=== PATIENT | female | born 1990 | race Caucasian/White ===

== ENCOUNTER 2021-08-18 17:00 | Outpatient (CLI) | payer BC ==
[2021-08-18] MEDS ORDERED: SODIUM CHLORIDE 0.9% 500 ML 500 ML IV ONE (17:56)
[2021-08-18] MEDS ORDERED: ONDANSETRON 4 MG/2 ML VIAL IM STA (17:56)
[2021-08-18 18:19] LABS: Appearance,Urine Clear (Clear); Bacteria,Urine Occasional /hpf; Bilirubin,Urine Negative (Negative); Blood,Urine Moderate (Negative); Color,Urine Yellow; Glucose,Urine (UA) Negative (Negative); Ketones,Urine 1+ (Negative); Leukocyte Esterase,Urine Small (Negative); Mucus,Urine Many /hpf; Nitrite,Urine Negative (Negative); Protein,Urine Trace (Negative); RBC,Urine 21 /hpf (0-5); Specific Gravity,Urine 1.025 (1.001-1.035); Squamous Epithelial Cell,Urine 4 /hpf (0-4); WBC,Urine 5 /hpf (0-5)
[2021-08-18 18:36] LABS: Basophils % (A) 0 %; Eosinophils # (A) 0.1 k/uL (0-0.7); Eosinophils % (A) 1 %; HCT 30.7 % (34.0-46.0); HGB 10.2 gm/dL (11.4-16.0); Lymphocytes # (A) 0.4 k/uL (1.0-4.8); Lymphocytes % (A) 5 %; MCH 32.8 pg (25.0-35.0); MCHC 33.3 g/dL (31.0-37.0); MCV 98.7 fL (80.0-100.0); Mean Platelet Volume 8.9; Monocytes # (A) 0.2 k/uL (0-1.0); Monocytes % (A) 3 %; Neutrophils # (A) 6.4 k/uL (1.3-7.7); Neutrophils % (A) 90 %; Platelet Count 182 k/uL (150-450); RBC 3.11 m/uL (3.80-5.40); RDW 13.9 % (11.5-15.5); WBC 7.1 k/uL (3.8-10.6)
[2021-08-18 19:41] VITALS: BP 119/70; PULSE 121; RESP 16; TEMP 98.3
--- NOTE | 2021-08-29 07:01 | P.MSEPDOC ---
Presenting Problems - Arrival Data Date of Arrival on Unit: 08/18/21 Time of Arrival on Unit: 17:14 Mode of Transport: Ambulatory - Complaint OB-Reason for Admission/Chief Complaint: Other Comment: pt arrived c/o throwing up all day and states she had a litle diarrhea this morning. pt also c/o some cramping. pt states she had covid in May Medical History - Information : 2 Para: 1 Term: 0 : 0 Abortions: Spontaneous or Elective: 0 Number of Living Children: 1 - Gestational Age Gestational Age by MAXI (wks/days): 37 Weeks and 1 Days Review of Systems - Review of Systems Constitutional: No problems Breast: No problems ENT: No problems Cardiovascular: No problems Respiratory: No problems Gastrointestinal: No problems Genitourinary: No problems Musculoskeletal: No problems Neurological: No problems Skin: No problems Vital Signs - Temperature Temperature: 98.3 F Temperature Source: Oral - Pulse Right Brachial Pulse Rate: 121 Pulse Assessment Method: Automatic Cuff - Respirations Respiratory Rate: 16 Oxygen Delivery Method: Room Air O2 Sat by Pulse Oximetry: 98 - Blood Pressure Right Arm Blood Pressure: 119/70 Blood Pressure Mean: 86 Blood Pressure Source: Automatic Cuff Medical Screen Scoring - Cervical Exam Dilation (cm): 1 Effacement (%): 50 Station: -2 Membranes: Intact - Uterine Contractions Intensity: Mild Resting: Soft to palpation - Assessment - Baby A Baseline FHR: 150 Heart Rate - NICHD Category: Category I (Normal) NST: Reactive Physician Notification - Physician Notified Physician Notified Date: 08/18/21 Physician Notified Time: 17:35 Physician: Dr Clarke New Order Received: Yes - Notification Comment Comment: start iv of Normal Saline, given zofran 4mg ivp, and obtain clean catch u/a and cbc and send to lab. and call her back with results. pt hydrated with iv fluid and given zofran. and labs back. dr jimenez called with results and orders receive to d/c pt and have her keep her scheduled appointment with dtr wilmer this week Maternal Triage Index - Non-Urgent/Priority 4 Non-Urgent Priority 4: Yes Criteria Met for Priority 4: p t 37 1/7 weeks c/o nausea and throwing up since this AM and had some diarrhea this morning. pt also c/o mild abd cramping Disposition - Disposition OB Disposition: Discharge to home Discharge Date: 08/18/21 Discharge Time: 19:25 I agree with the RN Medical Screening Exam: Yes Case reviewed; plan agreed upon as documented in EMR&OBIX.: Yes Diagnosis: nausea andvomitting in
== END 2021-08-18 19:20 | disposition home or self-care (01) ==
LOC: FBPOP 17:00
PROVIDERS: ATTEND Obstetrics & Gynecology
DX: O21.2 Late vomiting of pregnancy (principal); Z3A.37 37 weeks gestation of pregnancy
CPT/HCPCS: 59025; 99214; 96361; 96374; 85025; 81001; J2405; 96360; 96366

== ENCOUNTER 2021-09-01 06:15 | Inpatient (IN) | payer BC ==
[2021-09-01] MEDS ORDERED: TERBUTALINE 1 MG/ML VIAL SQ PRN (07:08)
[2021-09-01] MEDS ORDERED: LIDOCAINE 1% (PF) 10 MG/ML (30 ML SDV) SQ PRN (07:08)
[2021-09-01] MEDS ORDERED: CARBOPROST TROMETHAMINE 250 MCG/ML 1 ML AMP IM PRN (07:08)
[2021-09-01] MEDS ORDERED: METHYLERGONOVINE 0.2 MG/ML 1 ML AMP IM PRN (07:08)
[2021-09-01] MEDS ORDERED: OXYTOCIN 10 UNIT/ML 1 ML VIAL IM PRN (07:08)
[2021-09-01] MEDS ORDERED: OXYTOCIN 30 UNITS/500 ML NS 30 UNIT in SALINE 1 500ML.BAG IV SCH ×2 (07:15→14:15)
[2021-09-01] MEDS: LACTATED RINGERS 1,000 ML IV SCH ×2 (07:15→21:28)
[2021-09-01 07:25] LABS: Basophils % (A) 1 %; Eosinophils # (A) 0.2 k/uL (0-0.7); Eosinophils % (A) 2 %; HCT 32.6 % (34.0-46.0); HGB 11.1 gm/dL (11.4-16.0); Lymphocytes % (A) 13 %; MCH 32.6 pg (25.0-35.0); MCV 96.1 fL (80.0-100.0); Mean Platelet Volume 7.7; Monocytes # (A) 0.5 k/uL (0-1.0); Monocytes % (A) 6 %; Neutrophils # (A) 5.9 k/uL (1.3-7.7); Neutrophils % (A) 77 %; Platelet Count 245 k/uL (150-450); RBC 3.39 m/uL (3.80-5.40); RDW 13.6 % (11.5-15.5); WBC 7.6 k/uL (3.8-10.6)
[2021-09-01] MEDS ORDERED: BUTORPHANOL 1 MG/ML 1 ML VIAL IV PRN (09:03)
--- NOTE | 2021-09-01 09:07 | P.HPOB ---
History of Present Illness H&P Date: 09/01/21 Chief Complaint: 39 and one sevenths weeks, elective induction The patient is a 30-year-old 2 para 1001 admitted at 39 and one sevenths weeks as established by last menstrual period and confirmed by 8 week ultrasound. She is admitted for elective induction of labor with all signs reassuring. Her has been uncomplicated. She is Rh- and received RhoGAM at 28 weeks. Group B strep status is negative. On labor and delivery, all signs reassuring with a category 1 heart rate tracing. Obstetrical history: 2 para 1001 with 1 previous normal vaginal delivery at term. Current statistics are listed in history present illness. EDC of 09/07/2021 was established by last menstrual period and confirmed by 8 week ultrasound. Laboratory workup demonstrates a blood type of A- with a negative antibody screen. Rubella status is immune. The remainder of the laboratory workup was within normal limits. One hour Glucola was normal and group B strep status is negative. Gynecologic history: Unremarkable with no history of any infections to include STDs. Review of Systems Review of systems is confined to history of present illness. Past Medical History Past Medical History: No Reported History History of Any Multi-Drug Resistant Organisms: None Reported Past Surgical History: No Surgical Hx Reported Past Anesthesia/Blood Transfusion Reactions: No Reported Reaction Past Psychological History: No Psychological Hx Reported Smoking Status: Never smoker Past Alcohol Use History: None Reported Past Drug Use History: None Reported - Past Family History Mother Family Medical History: No Reported History Medications and Allergies Home Medications Medication Instructions Recorded Confirmed Type Omeprazole [PriLOSEC] 1 capsule PO DAILY 09/01/21 09/01/21 History Pnv No.95/Ferrous Fum/Folic AC 1 tab PO DAILY 09/01/21 09/01/21 History [ Multivitamin Tablet] Allergies Allergy/AdvReac Type Severity Reaction Status Date / Time No Known Allergies Allergy Verified 09/01/21 07:04 Exam Vital Signs Temp Pulse Resp BP 09/01/21 07:54 97.2 F L 103 H 16 114/66 Intake and Output 08/31/21 09/01/21 09/01/21 22:59 06:59 14:59 Other: Weight 85.729 kg In general, this is a well-developed, well-nourished white female in no acute distress. Her heart has a regular rhythm and rate without murmur. Her lungs are clear to auscultation bilaterally in all freedman. Her abdomen is gravid, nondistended, has normal active bowel sounds, is soft, nontender, and without any palpable masses aside from the uterine fundus. Her extremities are without any cyanosis, clubbing, or edema and are nontender to palpation bilaterally. Digital cervical examination demonstrates her cervix to be 2+ centimeters dilated, approximately 50% effaced, with the vertex in presentation at -2 station. Artificial rupture of membranes is carried out demonstrating clear fluid. Results Result Diagrams: 09/01/21 07:00 Abnormal Lab Results - Last 24 Hours (Table) 09/01/21 Range/Units 07:00 RBC 3.39 L (3.80-5.40) m/uL Hgb 11.1 L (11.4-16.0) gm/dL Hct 32.6 L (34.0-46.0) % Assessment and Plan (1) Term Current Visit: Yes Status: Acute Code(s): Z34.90 - ENCNTR FOR SUPRVSN OF NORMAL , UNSP, UNSP TRIMESTER SNOMED Code(s): 47039437 Plan: The patient is admitted for elective induction of labor secondary to significant maternal discomfort with ongoing back pain. Her is otherwise been uncomplicated. On labor and delivery, all signs reassuring. Pitocin augmentation has been started and artificial rupture of membranes carried out. She will have close maternal and surveillance and expectant management will be practiced. She is a good candidate for either IV or epidural analgesia, whichever she may choose.
[2021-09-01] MEDS ORDERED: SODIUM CHLORIDE 0.9% 100 ML BAG ONE (11:16)
[2021-09-01] MEDS ORDERED: ROPIVACAINE 5MG/ML 20ML VIAL ONE (11:16)
[2021-09-01] MEDS ORDERED: fentaNYL (PF) 50 MCG/ML 5 ML AMP ONE (11:16)
[2021-09-01] MEDS ORDERED: BENZOCAINE/MENTHOL SPRAY 1 GM/SPRAY AEROSOL TOPICAL PRN (14:02)
[2021-09-01] MEDS ORDERED: LANOLIN CREAM 5 GM TUBE TOPICAL PRN (14:02)
[2021-09-01] MEDS ORDERED: diphenhydrAMINE 25 MG CAP PO PRN (14:02)
[2021-09-01] MEDS ORDERED: HYDROcodone/APAP 5-325MG 1 EACH TAB PO PRN (14:02)
[2021-09-01] MEDS ORDERED: diphenhydrAMINE 50 MG/ML 1 ML VIAL IVP PRN ×2 (14:02)
[2021-09-01] MEDS ORDERED: HYDROcodone/APAP 7.5-325MG 1 EACH TAB PO PRN (14:02)
[2021-09-01] MEDS ORDERED: SIMETHICONE 80 MG CHEWABLE PO PRN (14:02)
[2021-09-01] MEDS ORDERED: HYDROCORTISONE 2.5% RECTAL CREAM 30 GM TUBE RECTAL PRN (14:02)
[2021-09-01] MEDS ORDERED: ZOLPIDEM 5 MG TAB PO PRN (14:02)
[2021-09-01] MEDS ORDERED: ACETAMINOPHEN TAB 325 MG TAB PO PRN (14:02)
[2021-09-01] MEDS ORDERED: diphenhydrAMINE 50 MG CAP PO PRN (14:02)
--- NOTE | 2021-09-01 14:05 | P.PROBDLV ---
Vaginal Delivery Note - . Vaginal Delivery Note: The patient is a 30-year-old 2 para 1001 admitted at 39 and one sevenths weeks by good dating parameters perches admitted for elective induction of labor with a favorable cervix and all signs reassuring, category 1 heart rate tracing. Her was entirely uncomplicated though she is Rh- and received RhoGAM at 28 weeks. Group E strep status is negative. On labor and delivery, she had Pitocin augmentation started and underwent artificial rupture of membranes for clear fluid. She made fairly rapid progress to the active phase of labor and had an epidural catheter placed for analgesia. She then progressed quickly through the active phase to complete and pushed over the course of approximately 4 contractions to a normal spontaneous vaginal delivery of a viable 8 lbs. 1 oz. baby boy with Apgars of 9 at 1 minute and 9 at 5 minutes delivered in the right occiput anterior position. The placenta was delivered spontaneously, intact, and grossly normal although it was very large with a grossly normal, centrally inserted three-vessel cord. There are no lacerations of the perineum, vagina, or cervix. Estimated blood loss for the case is approximately 200 mL. There were no complications. All sponge, instrument, and needle counts were correct. Both mother and infant are resting comfortably in recovery.
[2021-09-01] MEDS: IBUPROFEN 600 MG TAB PO PRN ×2 (15:39→22:16)
[2021-09-01] MEDS ORDERED: Rhogam IMMUNE GLOBULIN 1,500 UNIT/1 ML IM ONE (18:54)
[2021-09-01] MEDS: SENNOSIDES-DOCUSATE SODIUM 1 EACH TAB PO SCH (21:30)
[2021-09-02 07:05] LABS: HGB 10.7 gm/dL (11.4-16.0); MCH 32.5 pg (25.0-35.0); MCHC 33.4 g/dL (31.0-37.0); MCV 97.1 fL (80.0-100.0); Mean Platelet Volume 9.2; Neutrophils % (A) 77 %; Platelet Count 199 k/uL (150-450); RDW 13.8 % (11.5-15.5); WBC 9.1 k/uL (3.8-10.6)
[2021-09-02 07:06] LABS: Basophils % (A) 0 %; Eosinophils # (A) 0.2 k/uL (0-0.7); Eosinophils % (A) 2 %; Lymphocytes # (A) 1.3 k/uL (1.0-4.8); Lymphocytes % (A) 14 %; Monocytes # (A) 0.5 k/uL (0-1.0); Monocytes % (A) 6 %
[2021-09-02 08:16] VITALS: BP 106/71; PULSE 100; RESP 14; TEMP 97.8
--- NOTE | 2021-09-02 08:57 | P.DS ---
Providers Date of admission: 09/01/21 06:41 Expected date of discharge: 09/02/21 Attending physician: Hermes Olmedo Primary care physician: Stated None - Discharge Diagnosis(es) (1) Term Current Visit: Yes Status: Acute (2) Normal spontaneous vaginal delivery Current Visit: Yes Status: Acute Hospital Course: Is a 30-year-old 2 para 1001 admitted at 39 and one sevenths weeks by good dating parameters. She is admitted for elective induction of labor all signs reassuring. Her was uncomplicated though she is Rh- and received RhoGAM at 28 weeks. Group B strep status is negative. On labor and delivery, Pitocin augmentation was started and she underwent artificial rupture of membranes for clear fluid. She had an epidural catheter placed around the onset of the active phase of labor and made rapid progress through the day to complete. She then pushed quickly to a normal spontaneous vaginal delivery of a viable 8 lbs. 1 oz. baby boy with Apgars of 9 at 1 minute and 9 at 5 minutes. Her care was unremarkable as vital signs were stable and she was afebrile throughout. She was deemed stable for discharge on day 1 was discharged home to follow-up in the office in 6 weeks' time routinely. Discharge instructions included calling for any significantly increased bleeding or foul-smelling lochia, significantly increased fever abdominal pain, perineal complaints, breast complaints, or anything else that concerned her. She was additionally instructed to have nothing in the vagina for at least 6 weeks time. She understood her instructions and agrees follow up as noted above. Discharge medications included continued vitamins as she has opted to breast- feed. She was otherwise to use [id number] analgesic pain medications as needed. Maternal blood type is A- and cord blood was sent for evaluation for the necessity of RhoGAM prior to discharge. Rubella status is immune. Procedures: #1. Pitocin augmentation over 2. Artificial rupture of membranes #3. Epidural analgesia #4. Normal spontaneous vaginal delivery Patient Condition at Discharge: Stable Plan - Discharge Summary New Discharge Prescriptions: No Action Pnv No.95/Ferrous Fum/Folic AC [ Multivitamin Tablet] 1 tab PO DAILY Omeprazole [PriLOSEC] 1 capsule PO DAILY Discharge Medication List Omeprazole [PriLOSEC] 1 capsule PO DAILY 09/01/21 [History] Pnv No.95/Ferrous Fum/Folic AC [ Multivitamin Tablet] 1 tab PO DAILY 09/01/21 [History] Follow up Appointment(s)/Referral(s): Hermes Olmedo MD [STAFF PHYSICIAN] - 6 Weeks Discharge Disposition: HOME SELF-CARE
[2021-09-02] MEDS: SENNOSIDES-DOCUSATE SODIUM 1 EACH TAB PO SCH (09:22)
== END 2021-09-02 15:50 | disposition home or self-care (01) | DRG 807 ==
LOC: 4FBP 06:41
PROVIDERS: ADMIT Obstetrics & Gynecology; ATTEND Obstetrics & Gynecology
PROC: 10E0XZZ Delivery of Products of Conception, External Approach (ICD-10-PCS; principal; 2021-09-01)
PROC: 4A0HXCZ Measurement of Products of Conception, Cardiac Rate, External Approach (ICD-10-PCS; 2021-09-01)
PROC: 3E033VJ Introduction of Other Hormone into Peripheral Vein, Percutaneous Approach (ICD-10-PCS; 2021-09-01)
PROC: 10907ZC Drainage of Amniotic Fluid, Therapeutic from Products of Conception, Via Natural or Artificial Opening (ICD-10-PCS; 2021-09-01)
PROC: 3E0234Z Introduction of Serum, Toxoid and Vaccine into Muscle, Percutaneous Approach (ICD-10-PCS; 2021-09-01)
DX: O26.893 Other specified pregnancy related conditions, third trimester (principal); Z37.0 Single live birth; Z67.41 Type O blood, Rh negative; Z3A.39 39 weeks gestation of pregnancy
CPT/HCPCS: 85025; 85461; 86850; 86900; 86901